=== PATIENT | female | born 1970 | race Caucasian/White ===

== ENCOUNTER 2016-09-17 08:29 | Day surgery (SDC) | payer OTHER ==
[~2016-09-17 08:29] MED LIST: IRON PO; MULTI VITAMIN1 EAC2 PO; TRINESSA TABLE1 EACH PO; VITAMIN D PO; ZOCOR20 M1 PO
[2016-09-17 09:32] LABS: HCT-HEMATOCRIT 32.9 % (34.0-49.0); HGB-HEMOGLOBIN 10.8 gm/dl (12.0-15.5); MCV (MEAN CELL VOLUME) 80.8 fl (82.0-96.0); RED CELL DISTRIBUTION WIDTH 13.4 % (12.4-16.4)
== END 2016-09-17 13:20 ==
LOC: SHSB 08:29 → ORW 10:21 → PACU 11:12 → SHSB 11:45
PROVIDERS: Obstetrics & Gynecology
PROC: 0UBC7ZZ Excision of Cervix, Via Natural or Artificial Opening (ICD-10-PCS; principal; 2016-09-17)
DX: N87.9 Dysplasia of cervix uteri, unspecified (principal); N72 Inflammatory disease of cervix uteri; Z79.3 Long term (current) use of hormonal contraceptives; Z79.899 Other long term (current) drug therapy; Z88.2 Allergy status to sulfonamides